=== PATIENT | female | born 1935 | race Caucasian/White ===

== ENCOUNTER → 2018-06-01 | Outpatient (CLI) | payer MEDICARE, OTHER | END | disposition home or self-care (01) | LOC: PUL 12:43 | DX: R53.83 Other fatigue (principal); R06.02 Shortness of breath | CPT/HCPCS: 94010; 94726; 94729 ==

== ENCOUNTER → 2018-06-03 | Outpatient (CLI) | payer MEDICARE, OTHER | END | disposition home or self-care (01) | LOC: EKG 12:45 | DX: M34.9 Systemic sclerosis, unspecified (principal); R53.83 Other fatigue | CPT/HCPCS: 93306 ==